=== PATIENT | female | born 1975 | race American Indian/Alaskan Native ===

== ENCOUNTER 2016-10-12 20:39 | Emergency (ER) | payer MEDICAID ==
[2016-10-12] MEDS ORDERED: ZOFRAN ODT PO ONE (21:20)
[2016-10-12] MEDS ORDERED: MOTRIN PO ONE (21:20)
--- NOTE | 2016-10-12 21:23 | Emergency Department Report ---
Chief Complaint: Chest Pain Stated Complaint: CHEST PAIN Time Seen by Provider: 10/12/16 21:18 - HPI History of Present Illness: Patient presents with midsternal and epigastric pain 2 days, nausea, vomiting that started today and has been approximately 4 times, diaphoresis, shortness of breath. Denies diarrhea at this time. She does admit that she went to the doctor today and was diagnosed with flu she was given Tamiflu, Mucinex and ibuprofen which she has been unable to fill so far. - ROS Review of Systems: All other systems unremarkable except documentation in HPI - Exam Vital Signs: Vital Signs 10/12/16 20:45 Temperature 99.4 F Pulse Rate 106 H Respiratory 18 Rate Blood Pressure 127/92 [Right] O2 Sat by Pulse 100 Oximetry Physical Exam: Gen: Female, ill appearance but nontoxic, ambulatory. Cardiovascular: Heart sounds present S1-S2, no murmur, gallop, edema or ectopy noted, 2+ pulses upper and lower extremities Respiratory: Chest symmetry with respirations, lungs clear to auscultate upper and lower lobes, respirations even and unlabored, no rales, rhonchi, crackles noted. Psych: AxOx3, answers questions appropriately, mood full range, affect normal, normal speech and tone. MSE screening note: Focused history and physical exam performed. Due to findings the following was ordered: seen by provider, laboratory and radiology studies ordered, and to go to main ED to be seen by physician ED Medical Decision Making - Medical Decision Making seen by provider, laboratory and radiology studies ordered, and to go to main ED to be seen by physician ED Disposition for MSE Condition: Stable
[2016-10-12 22:03] LABS: Hemoglobin 12.8 gm/dl (10.1-14.3); Mean Corpuscular HGB Conc 34 % (30-34); Mean Corpuscular Hemoglobin 29 pg (28-32); Mean Corpuscular Volume 87 fl (79-97); Platelet Count 211 K/mm3 (140-440); Red Cell Distribution Width 14.1 % (13.2-15.2); White Blood Count 10.7 K/mm3 (4.5-11.0)
[2016-10-12 22:12] LABS: Anion Gap 24 mmol/L; BUN/Creatinine Ratio 6.66; Blood Urea Nitrogen 4 mg/dL (7-17); Calcium 9.2 mg/dL (8.4-10.2); Carbon Dioxide 20 mmol/L (22-30); Chloride 92.9 mmol/L (98-107); Glucose 97 mg/dL (65-100); Potassium 4.3 mmol/L (3.6-5.0); Sodium 133 mmol/L (137-145)
[2016-10-12 23:14] LABS: Basophils % (Manual) 0 % (0.0-1.8); Blastocytes % (Manual) 0 %; Eosinophils % (Manual) 0 % (0.0-4.3)
[2016-10-12 23:16] LABS: Target Cells 1+
[2016-10-12 23:17] LABS: Anisocytosis 1+; Diff Status Complete; Hypochromasia 1+; Large Platelets 1+; Platelet Estimate Consistent w Auto
[2016-10-13] MEDS ORDERED: MOTRIN ONE (04:45)
[2016-10-13] MEDS ORDERED: MOTRIN PO ONE (04:51)
[2016-10-13] MEDS ORDERED: TORADOL IV ONE (06:39)
[2016-10-13] MEDS ORDERED: ZOFRAN IV ONE (06:39)
[2016-10-13] MEDS ORDERED: NACL 0.9% 1000 ML 1,000 ML IV ONE (06:40)
--- NOTE | 2016-10-13 06:59 | Emergency Department Report ---
ED General Adult HPI - General Chief complaint: Chest Pain Stated complaint: CHEST PAIN Time Seen by Provider: 10/12/16 21:18 Source: patient Mode of arrival: Ambulatory Limitations: No Limitations - History of Present Illness Initial comments: patient complaining of diffuse body aches . fever , nausea and vomiting , seen at Urgent care and tested positive for flu and given medications but she hasnt been able to keep it down , and the pain got worse and came to the er Onset/Timin -: days(s) Location: head, face, chest, back, abdomen, upper extremity, lower extremity Radiation: non-radiation Severity scale (0 -10): 5 Quality: aching, sharp Consistency: intermittent Improves with: none Worsens with: none Associated Symptoms: denies: confusion, chest pain, headaches, loss of appetite , malaise, shortness of breath, syncope, weakness Treatments Prior to Arrival: NSAID - Related Data Previous Rx's Medication Instructions Recorded Last Taken Type Esomeprazole Magnesium [NexIUM 20 mg PO QDAC #20 capsule. 10/13/16 Unknown Rx 24Hr] HYDROcodone/ACETAMINOPHEN [Vicodin 1 tab PO BID PRN #12 tablet 10/13/16 Unknown Rx HP 10-300 mg TAB] Ondansetron [Zofran ODT TAB] 8 mg PO Q12HR #20 tab.rapdis 10/13/16 Unknown Rx Allergies Allergy/AdvReac Type Severity Reaction Status Date / Time No Known Allergies Allergy Verified 10/17/15 13:20 ED Review of Systems ROS: Stated complaint: CHEST PAIN Other details as noted in HPI Constitutional: denies: chills, fever Eyes: denies: eye pain, eye discharge, vision change ENT: denies: ear pain, throat pain Respiratory: denies: cough, shortness of breath, wheezing Cardiovascular: denies: chest pain, palpitations Endocrine: no symptoms reported Gastrointestinal: denies: abdominal pain, nausea, diarrhea Genitourinary: denies: urgency, dysuria, discharge Musculoskeletal: denies: back pain, joint swelling, arthralgia Skin: denies: rash, lesions Neurological: denies: headache, weakness, paresthesias Psychiatric: denies: anxiety, depression Hematological/Lymphatic: denies: easy bleeding, easy bruising ED Past Medical Hx - Past Medical History Previous Medical History?: Yes Hx Hypertension: No Hx Heart Attack/AMI: No Hx Congestive Heart Failure: No Hx Diabetes: No Hx Deep Vein Thrombosis: No Hx Pulmonary Embolism: No Hx GERD: No Hx Liver Disease: No Hx Renal Disease: No Hx Sickle Cell Disease: No Hx Arthritis: No Hx Headaches / Migraines: Yes Hx Seizures: No Hx Kidney Stones: No Hx Asthma: No Hx COPD: No Hx Tuberculosis: No Hx Dementia: No Hx HIV: No - Surgical History Past Surgical History?: No Hx Coronary Stent: No Hx Open Heart Surgery: No Hx Pacemaker: No Hx Internal Defibrillator: No Hx Cholecystectomy: No Hx Appendectomy: No Hx Breast Surgery: No - Social History Smoking Status: Current Every Day Smoker Substance Use Type: Alcohol - Medications Home Medications: Home Medications Medication Instructions Recorded Confirmed Last Taken Type Esomeprazole Magnesium [NexIUM 20 mg PO QDAC #20 capsule.dr 10/13/16 Unknown Rx 24Hr] HYDROcodone/ACETAMINOPHEN [Vicodin 1 tab PO BID PRN #12 tablet 10/13/16 Unknown Rx HP 10-300 mg TAB] Ondansetron [Zofran ODT TAB] 8 mg PO Q12HR #20 tab.rapdis 10/13/16 Unknown Rx ED Physical Exam - General Limitations: No Limitations General appearance: alert, in no apparent distress - Head Head exam: Present: atraumatic, normocephalic - Eye Eye exam: Present: normal appearance - ENT ENT exam: Present: mucous membranes moist - Neck Neck exam: Present: normal inspection - Respiratory Respiratory exam: Present: normal lung sounds bilaterally. Absent: respiratory distress - Cardiovascular Cardiovascular Exam: Present: regular rate, normal rhythm. Absent: systolic murmur, diastolic murmur, rubs, gallop - GI/Abdominal GI/Abdominal exam: Present: soft, tenderness (diffusely , but no guarding), normal bowel sounds. Absent: distended, guarding, rebound, organomegaly, mass, bruit, pulsatile mass - Extremities Exam Extremities exam: Present: normal inspection - Back Exam Back exam: Present: normal inspection - Neurological Exam Neurological exam: Present: alert, oriented X3 - Skin Skin exam: Present: warm, dry, intact, normal color. Absent: rash ED Course Vital Signs 10/12/16 10/13/16 10/13/16 20:45 05:47 05:51 Temperature 99.4 F Pulse Rate 106 H 98 H Respiratory 18 21 18 Rate Blood Pressure Blood Pressure 127/92 [Right] O2 Sat by Pulse 100 100 Oximetry 10/13/16 10/13/16 10/13/16 06:01 06:11 06:15 Temperature 98.0 F Pulse Rate 65 Respiratory 15 Rate Blood Pressure Blood Pressure 136/86 [Right] O2 Sat by Pulse 100 100 100 Oximetry 10/13/16 10/13/16 10/13/16 06:21 06:30 06:41 Temperature Pulse Rate 82 83 Respiratory 18 15 Rate Blood Pressure 136/87 136/87 Blood Pressure [Right] O2 Sat by Pulse 100 100 Oximetry 10/13/16 10/13/16 10/13/16 06:43 06:51 07:00 Temperature Pulse Rate 82 83 Respiratory 15 17 16 Rate Blood Pressure 139/92 137/86 Blood Pressure [Right] O2 Sat by Pulse 100 100 100 Oximetry 10/13/16 10/13/16 10/13/16 07:11 07:21 07:30 Temperature Pulse Rate 71 92 H 86 Respiratory 17 12 15 Rate Blood Pressure 137/86 135/89 134/82 Blood Pressure [Right] O2 Sat by Pulse 100 100 100 Oximetry 10/13/16 10/13/16 10/13/16 07:41 07:51 08:00 Temperature Pulse Rate 82 93 H 91 H Respiratory 12 17 12 Rate Blood Pressure 137/86 127/75 137/76 Blood Pressure [Right] O2 Sat by Pulse 100 100 100 Oximetry 10/13/16 10/13/16 10/13/16 08:11 08:21 08:30 Temperature Pulse Rate 91 H 90 94 H Respiratory 19 13 14 Rate Blood Pressure 127/75 143/89 152/89 Blood Pressure [Right] O2 Sat by Pulse 100 100 100 Oximetry 10/13/16 10/13/16 10/13/16 08:41 08:51 09:00 Temperature Pulse Rate 95 H 87 Respiratory 15 17 Rate Blood Pressure 152/89 124/63 141/91 Blood Pressure [Right] O2 Sat by Pulse 100 100 Oximetry 10/13/16 10/13/16 10/13/16 09:11 09:21 09:31 Temperature Pulse Rate 90 106 H 102 H Respiratory 15 20 14 Rate Blood Pressure 124/63 124/63 124/63 Blood Pressure [Right] O2 Sat by Pulse 100 100 100 Oximetry 10/13/16 10/13/16 10/13/16 09:41 09:51 10:00 Temperature Pulse Rate 82 Respiratory 15 14 16 Rate Blood Pressure 124/63 124/63 122/75 Blood Pressure [Right] O2 Sat by Pulse 100 100 Oximetry 10/13/16 10/13/16 10/13/16 10:11 10:21 10:31 Temperature Pulse Rate Respiratory 29 H 13 10 L Rate Blood Pressure 122/75 122/75 122/75 Blood Pressure [Right] O2 Sat by Pulse 100 100 100 Oximetry 10/13/16 10/13/16 10/13/16 10:41 10:51 11:00 Temperature Pulse Rate Respiratory 17 16 10 L Rate Blood Pressure 122/75 122/75 147/84 Blood Pressure [Right] O2 Sat by Pulse 100 100 100 Oximetry 10/13/16 10/13/16 10/13/16 11:11 11:21 11:30 Temperature Pulse Rate Respiratory 15 14 16 Rate Blood Pressure 147/84 147/84 147/84 Blood Pressure [Right] O2 Sat by Pulse 100 100 100 Oximetry ED Medical Decision Making - Lab Data Result diagrams: 10/12/16 21:36 10/12/16 21:36 - Medical Decision Making patient with improved abdominal pain , ct abd and pelvis with contrast was negative . labs negative , tolerating po here , will discharge and follow up. Critical care attestation.: If time is entered above; I have spent that time in minutes in the direct care of this critically ill patient, excluding procedure time. ED Disposition Clinical Impression: Abdominal pain, Vomiting Disposition: DISCHARGED TO HOME OR SELFCARE Is pt being admited?: No Does the pt Need Aspirin: No Condition: Good Instructions: Abdominal Pain (ED) Prescriptions: Esomeprazole Magnesium [NexIUM 24Hr] 20 mg PO QDAC #20 capsule. HYDROcodone/ACETAMINOPHEN [Vicodin HP 10-300 mg TAB] 1 tab PO BID PRN #12 tablet PRN Reason: Pain Ondansetron [Zofran ODT TAB] 8 mg PO Q12HR #20 tab.rene Referrals: PRIMARY CARE, [Primary Care Provider] - 3-5 Days Time of Disposition: 13:46
[2016-10-13] MEDS ORDERED: NORCO 5/325 ONE (08:44)
[2016-10-13] MEDS ORDERED: NORCO 5/325 PO ONE (09:32)
[2016-10-13] MEDS ORDERED: NACL ONE (11:34)
--- NOTE | 2016-10-13 13:04 | Cat Scan Report ---
CT scan of abdomen and pelvis with IV contrast: History: Abdominal pain. Findings: Normal lung bases. No pleural or pericardial effusion. Normal spleen. Pancreas appears slightly enlarged however no definite evidence of pancreatitis is noted. There is moderate amount of ascitic fluid noted. Normal adrenals and kidney parenchyma. Normal bladder. No hydronephrosis. No evidence of adenopathy. Normal aorta. No appendicitis or diverticulitis. No bowel distention or wall thickening. Impression: Moderate ascitic fluid. Fatty liver.
--- NOTE | 2016-10-13 13:20 | Admit Criteria Form ---
Admission Criteria Documentation: VOMITING Clinical Indications for Admission to Inpatient Care ( Place 'X' for any and all applicable criteria): Admission is indicated for ANY ONE of the following(1)(2)(3): [ ]I. Inpatient admission required rather than observation care because of ANY ONE of the following: [ ]i) Hemodynamic instability that is severe or persistent [ ]ii) Vomiting that is severe or persistent [ ]iii) Severe electrolyte abnormalities requiring inpatient care [ ]iv) Severe pain requiring acute inpatient management [ ]v) High fever or infection requiring inpatient admission as indicated by ANY ONE of the following(7)(8): [ ]1) Appropriate outpatient or observation care antimicrobial treatment unavailable, not effective, or not feasible [ ]2) Documented bacteremia [ ]3) Temp >104.9 degrees F (40.5 degrees C) (oral) [ ]4) Temp >103.1 degrees F (39.5 C) (oral) or <96.8 degrees F (36 C) (rectal) that does not respond to all emergency treatment measures [ ]vi) Acute renal failure [ ]vii) IV fluid to replace significant ongoing losses (greater than 3 L/m2 per day) [ ]viii) Parenteral nutrition regimen that must be implemented on inpatient basis [ ]ix) Other condition, treatment or monitoring requiring inpatient admission [ ]II. Complete or partial gastrointestinal obstruction [ ]III. Other cause of vomiting requiring hospitalization (eg, poisoning, increased intracranial pressure) [ ]IV. Vomiting due to significant metabolic derangement (eg, severe hypercalcemia, diabetic ketoacidosis) Extended stay beyond goal length of stay may be needed for(1)(4): [ ]a) Severe vomiting [ ]b) Persistent vomiting, vital sign changes, severe electrolyte imbalance , or diagnosed cause of vomiting that requires continued hospitalization (eg, gastrointestinal obstruction , increased intracranial pressure) [ ]c) Surgery to treat identified causes of vomiting (eg, bowel obstruction , intracranial process) [ ]d) Comorbid illness that requires inpatient care (eg, acute heart failure , renal failure) [ ]e) Need for inpatient endoscopy The original [email or web address] content created by [email or web address] has been revised. The portions of the content which have been revised are identified through the use of italic text or in bold, and [facility] [employer] has neither reviewed nor approved the modified material. All other unmodified content is copyright [facility]. Please see references footnoted in the original [facility] edition 2016
[2016-10-13 14:07] VITALS: BP 132/81
== END 2016-10-13 14:15 | disposition home or self-care (01) ==
LOC: ED 20:39
DX: R11.2 Nausea with vomiting, unspecified (principal); R10.84 Generalized abdominal pain; G43.909 Migraine, unspecified, not intractable, without status migrainosus; F17.200 Nicotine dependence, unspecified, uncomplicated
CPT/HCPCS: 36415; 74177; 80048; 84484; 84703; 85007; 85025; 93005; 93010; 96361; 96374; 96375; 99285; J1885; J2405; J7030; Q9967; Q0162

== ENCOUNTER 2017-12-28 23:54 | Emergency (ER) | payer MEDICAID, OTHER ==
[2017-12-29] MEDS ORDERED: MOTRIN PO ONE ×2 (03:15→03:28)
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
[2017-12-29 03:49] VITALS: BP 119/84
== END 2017-12-29 03:49 | disposition home or self-care (01) ==
LOC: ED 23:54
DX: S13.4XXA Sprain of ligaments of cervical spine, initial encounter (principal); S39.012A Strain of muscle, fascia and tendon of lower back, initial encounter; F17.200 Nicotine dependence, unspecified, uncomplicated; V49.49XA Driver injured in collision with other motor vehicles in traffic accident, initial encounter; Y93.89 Activity, other specified; Y92.89 Other specified places as the place of occurrence of the external cause; Y99.8 Other external cause status
CPT/HCPCS: 99282

== ENCOUNTER 2019-06-09 00:19 | Emergency (ER) | payer SELFPAY ==
--- NOTE | 2019-06-09 09:25 | Emergency Department Report ---
ED General Adult HPI - General Chief complaint: Extremity Injury, Lower Stated complaint: HEAD CONGESTION/BILATERL SIDE PAIN Time Seen by Provider: 06/09/19 08:50 Source: patient Mode of arrival: Ambulatory Limitations: No Limitations - History of Present Illness Initial comments: 43-year-old female states that she has recurrent pain in the lateral aspect of the buttocks area which radiates down the lateral aspect of both legs to intermittently and nasal congestion. She states that she has gone to the doctor before for the same complaint and nothing specific was found. She does not complain of cough. She does not complain of arthralgias or any other pain or swelling of her lower legs. She has no difficulty in breathing. Her review of systems otherwise negative. She states that she has no medical problems. She denies being on any current medications. -: Gradual, days(s) Location: lower extremity Radiation: other (as above) Quality: aching Consistency: intermittent Improves with: none Worsens with: none Associated Symptoms: denies other symptoms Treatments Prior to Arrival: none - Related Data Previous Rx's Medication Instructions Recorded Last Taken Type Esomeprazole Magnesium [NexIUM 20 mg PO QDAC #20 capsule. 10/13/16 Unknown Rx 24Hr] HYDROcodone/ACETAMINOPHEN [Vicodin 1 tab PO BID PRN #12 tablet 10/13/16 Unknown Rx HP 10-300 mg TAB] Ondansetron [Zofran ODT TAB] 8 mg PO Q12HR #20 tab.rapdis 10/13/16 Unknown Rx Cyclobenzaprine [Flexeril] 10 mg PO QHS PRN #7 tablet 12/29/17 Unknown Rx Ibuprofen [Motrin] 600 mg PO Q8H PRN #30 tablet 12/29/17 Unknown Rx traMADol [Ultram 50 MG tab] 50 mg PO Q6HR PRN #7 tablet 06/09/19 Unknown Rx Allergies Allergy/AdvReac Type Severity Reaction Status Date / Time No Known Allergies Allergy Verified 10/17/15 13:20 ED Review of Systems ROS: Stated complaint: HEAD CONGESTION/BILATERL SIDE PAIN Other details as noted in HPI Constitutional: denies: chills, fever Eyes: denies: eye pain, eye discharge, vision change ENT: denies: ear pain, throat pain Respiratory: denies: cough, shortness of breath, wheezing Cardiovascular: denies: chest pain, palpitations Endocrine: no symptoms reported Gastrointestinal: denies: abdominal pain, nausea, diarrhea Genitourinary: denies: urgency, dysuria, discharge Musculoskeletal: as per HPI. denies: back pain, joint swelling, arthralgia Skin: denies: rash, lesions Neurological: denies: headache, weakness, paresthesias Psychiatric: denies: anxiety, depression Hematological/Lymphatic: denies: easy bleeding, easy bruising ED Past Medical Hx - Past Medical History Previous Medical History?: Yes Hx Hypertension: No Hx Heart Attack/AMI: No Hx Congestive Heart Failure: No Hx Diabetes: No Hx Deep Vein Thrombosis: No Hx Pulmonary Embolism: No Hx GERD: No Hx Liver Disease: No Hx Renal Disease: No Hx Sickle Cell Disease: No Hx Arthritis: No Hx Headaches / Migraines: Yes Hx Seizures: No Hx Kidney Stones: No Hx Asthma: No Hx COPD: No Hx Tuberculosis: No Hx Dementia: No Hx HIV: No - Surgical History Past Surgical History?: No Hx Coronary Stent: No Hx Open Heart Surgery: No Hx Pacemaker: No Hx Internal Defibrillator: No Hx Cholecystectomy: No Hx Appendectomy: No Hx Breast Surgery: No - Social History Smoking Status: Current Every Day Smoker Substance Use Type: None - Medications Home Medications: Home Medications Medication Instructions Recorded Confirmed Last Taken Type Esomeprazole Magnesium [NexIUM 20 mg PO QDAC #20 capsule. 10/13/16 Unknown Rx 24Hr] HYDROcodone/ACETAMINOPHEN [Vicodin 1 tab PO BID PRN #12 tablet 10/13/16 Unknown Rx HP 10-300 mg TAB] Ondansetron [Zofran ODT TAB] 8 mg PO Q12HR #20 tab.rapdis 10/13/16 Unknown Rx Cyclobenzaprine [Flexeril] 10 mg PO QHS PRN #7 tablet 12/29/17 Unknown Rx Ibuprofen [Motrin] 600 mg PO Q8H PRN #30 tablet 12/29/17 Unknown Rx traMADol [Ultram 50 MG tab] 50 mg PO Q6HR PRN #7 tablet 06/09/19 Unknown Rx ED Physical Exam - General Limitations: No Limitations General appearance: alert, in no apparent distress - Head Head exam: Present: atraumatic, normocephalic - Eye Eye exam: Present: normal appearance. Absent: scleral icterus - ENT ENT exam: Present: normal orophraynx, mucous membranes moist - Neck Neck exam: Present: normal inspection - Respiratory Respiratory exam: Present: normal lung sounds bilaterally. Absent: respiratory distress - Cardiovascular Cardiovascular Exam: Present: regular rate, normal rhythm. Absent: systolic murmur, diastolic murmur, rubs, gallop - GI/Abdominal GI/Abdominal exam: Present: soft, normal bowel sounds. Absent: distended, tenderness, guarding, rebound, rigid - Extremities Exam Extremities exam: Present: normal inspection, full ROM, normal capillary refill, other (for full pulses are normal). Absent: tenderness, pedal edema, joint swelling, calf tenderness - Back Exam Back exam: Present: normal inspection - Neurological Exam Neurological exam: Present: alert, oriented X3, CN II-XII intact. Absent: motor sensory deficit - Psychiatric Psychiatric exam: Present: normal affect, normal mood - Skin Skin exam: Present: warm, dry, intact, normal color. Absent: rash ED Course Vital Signs 06/09/19 00:24 Temperature 97.8 F Pulse Rate 99 H Respiratory 18 Rate Blood Pressure 109/80 O2 Sat by Pulse 100 Oximetry - Reevaluation(s) Reevaluation #1: I do not believe the patient has an emergency medical condition. She is referred to primary care and given analgesia. 06/09/19 09:24 Critical care attestation.: If time is entered above; I have spent that time in minutes in the direct care of this critically ill patient, excluding procedure time. ED Disposition Clinical Impression: Pain in both lower legs Disposition: DC-01 TO HOME OR SELFCARE Is pt being admited?: No Does the pt Need Aspirin: No Condition: Stable Instructions: Viral Syndrome (ED) Additional Instructions: Follow-up with a primary care physician is recommended. See Referral. Prescriptions: traMADol [Ultram 50 MG tab] 50 mg PO Q6HR PRN #7 tablet PRN Reason: Pain Referrals: PRIMARY CARE [Primary Care Provider] - 3-5 Days [facility] [Provider Group] - 3-5 Days Time of Disposition: 09:25
[2019-06-09 10:27] VITALS: BP 140/89
== END 2019-06-09 10:27 | disposition home or self-care (01) ==
LOC: ED 00:19
DX: M79.661 Pain in right lower leg (principal); M79.662 Pain in left lower leg; Z79.899 Other long term (current) drug therapy; F17.200 Nicotine dependence, unspecified, uncomplicated
CPT/HCPCS: 99282

== ENCOUNTER 2019-08-18 23:46 | Emergency (ER) | payer MEDICAID | END 2019-08-19 00:36 | disposition left against medical advice (07) | LOC: ED 23:46 | DX: R51 Headache (principal); Z53.21 Procedure and treatment not carried out due to patient leaving prior to being seen by health care provider ==

== ENCOUNTER 2020-10-17 22:54 | Emergency (ER) | payer MEDICAID ==
[2020-10-17 23:24] VITALS: BP 102/66
[2020-10-18 01:02] LABS: Blood Urea Nitrogen 3 mg/dL (7-17); Hemolysis Index 0
[2020-10-18 01:11] LABS: Hemoglobin 6.7 gm/dl (10.1-14.3); Mean Corpuscular HGB Conc 32 % (30-34); Platelet Count 232 K/mm3 (140-440); Red Blood Count 3.16 M/mm3 (3.65-5.03)
[2020-10-18 01:20] LABS: BUN/Creatinine Ratio 6; Basophils # (Auto) 0.1 K/mm3 (0.0-0.1); Basophils % (Auto) 1.6 % (0.0-1.8); Eosinophils # (Auto) 0.1 K/mm3 (0.0-0.4); Eosinophils % (Auto) 1.7 % (0.0-4.3); INR 1.15 (0.87-1.13); Lymphocytes % (Auto) 16.4 % (13.4-35.0); Mean Corpuscular Volume 67 fl (79-97); Monocytes # (Auto) 0.8 K/mm3 (0.0-0.8); Monocytes % (Auto) 12.8 % (0.0-7.3); Red Cell Distribution Width 24.1 % (13.2-15.2)
== END 2020-10-18 04:14 | disposition left against medical advice (07) ==
LOC: ED 22:54
DX: R51.9 Headache, unspecified (principal); D64.9 Anemia, unspecified; Z53.21 Procedure and treatment not carried out due to patient leaving prior to being seen by health care provider
CPT/HCPCS: 36415; 80048; 82550; 83735; 84702; 84703; 85025; 85610; 86850; 86900; 86901